=== PATIENT | female | born 2005 | race African-American/Black ===

== ENCOUNTER 2023-12-18 14:08 | Emergency (ER) | payer MEDICAID, OTHER ==
[~2023-12-18] VITALS: Ht 167.6 cm; Wt 68.2 kg
[~2023-12-18 14:08] MED LIST: NO MEDS
[2023-12-18 14:11] VITALS: TEMP 98
[2023-12-18] MEDS: ONDANSETRON HCL 4 MG TABLET PO ONE (15:20)
[2023-12-18 16:04] LABS: BASOPHILS % (AUTO) 0.5 % (0.0-2.0); EOSINOPHILS % (AUTO) 0.7 % (1.0-6.0); HEMATOCRIT 31.9 % (36-46); HEMOGLOBIN 10.9 g/dL (12.0-16.0); LYMPHOCYTES # (AUTO) 1.4 K/uL (1.0-4.8); LYMPHOCYTES % (AUTO) 23.9 % (22.0-44.0); MEAN CORPUSCULAR HGB CONC 34.1 G/dL (31.0-37.0); MEAN CORPUSCULAR VOLUME 91 fL (80-100); MONOCYTES # (AUTO) 0.4 K/uL (0.1-1.0); MONOCYTES % (AUTO) 6.3 % (2.0-9.0); NEUTROPHILS # (AUTO) 3.9 K/uL (1.8-7.7); NEUTROPHILS % (AUTO) 68.6 % (40.0-70.0); PLATELET COUNT (AUTO) 303 K/uL (150-450); RED CELL DISTRIBUTION WIDTH 12.7 % (11.5-14.5); WHITE BLOOD COUNT (AUTO) 5.7 K/uL (4.5-11.0)
[2023-12-18] MEDS: SODIUM CHLORIDE 0.9% 2,000 ML IV ONE (16:07)
[2023-12-18 16:08] LABS: ANION GAP 11 mmol/L (8-16); CALCIUM, TOTAL 9.1 mg/dL (8.8-10.5); CARBON DIOXIDE 25 mmol/L (22-29); CHLORIDE 100 mmol/L (98-107); CREATININE 0.58 mg/dL (0.60-1.30); GLOMERULAR FILTR. RATE CALC > 60 mL/min (>60); GLUCOSE,RANDOM 70 mg/dL (70-110); POTASSIUM 3.1 mmol/L (3.5-5.1); SODIUM SERUM 136 mmol/L (136-145); UREA NITROGEN, BLOOD 9 mg/dL (7-18)
[2023-12-18] MEDS: POTASSIUM CHLORIDE 20 MEQ ER TABLET PO ONE (17:23)
[2023-12-18] MEDS: PYRIDOXINE HCL 50 MG TABLET PO ONE (17:23)
[2023-12-18] MEDS: DOXYLAMINE SUCCINATE 25 MG TABLET PO ONE (17:23)
[2023-12-18 17:40] VITALS: BP 129/69; PULSE 84; RESP 18
[2023-12-18] MEDS ORDERED: DOXY1TAB3 PO (17:52)
[2023-12-18] MEDS ORDERED: PREN-18 PO (17:52)
== END 2023-12-18 18:09 | disposition home or self-care (01) ==
LOC: EMS 14:11
DX: O21.0 Mild hyperemesis gravidarum (principal); Z3A.09 9 weeks gestation of pregnancy; J45.909 Unspecified asthma, uncomplicated
CPT/HCPCS: 99284; 96360; 80048; 85025; 36415; Q0162; J7030